=== PATIENT | male | born 2000 | race Caucasian/White ===

== ENCOUNTER 2023-11-16 09:34 | Emergency (ER) | payer OTHER, SELFPAY ==
[2023-11-16 09:37] VITALS: BP 146/87; PULSE 102; RESP 16; TEMP 36.6; O2SAT 95; BMI 23.7
--- NOTE | 2023-11-16 09:41 | XR_ITS ---
Patient: AKHIL NIÑO Facility:?[facility] Patient ID:?[id number] Site Patient ID:?[id number] Site :?[id number] Study:?XRay-Extremity Right FOOT 3V-11/16/2023 9:53:54 AM Ordering Physician:MIROSLAVA Final Report: Indication: Injury and pain Technique: Right foot 3 views. Comparison: None Findings: Bones: Alignment is normal. No fractures or bone lesions. Joint spaces: Unremarkable. Soft tissues: Unremarkable. Impression: No sign of acute injury. Dictated by Ye Moore MD @ 11/16/2023 5:33:11 PM Signed by:?Ye Moore MD @11/16/2023 5:33:11 PM (Electronic Signature)
--- NOTE | 2023-11-16 09:51 | ED_ITS ---
HPI - Extremity Injury (Lower) General Chief Complaint: Extremity Pain/Injury, Lower Stated Complaint: R foot trauma-kicked a cinder block Time Seen by Provider: 11/16/23 09:36 History of Present Illness HPI Narrative: This 23-year-old male comes in with an injury to his right foot. Last evening he was frustrated over various circumstances an out of some anger he kicked a cinder block and comes in today with pain in his right foot. He does not report any other injury. He is otherwise in good health. Related Data Previous Rx's Medication Instructions Recorded ketorolac 10 mg tablet 10 mg PO Q8H 5 days #15 tabs 11/16/23 Allergies Allergy/AdvReac Type Severity Reaction Status Date / Time No Known Drug Allergies Allergy Verified 11/16/23 09:41 Review of Systems Status of ROS: Reports: 10 or more systems reviewed and unremarkable except as noted in History and below Narrative: Constitutional: No fevers, no weight gain or loss. Eyes: No discharge. No vision changes. HENT: No congestion, no sore throat, no ear pain. Cardiovascular: No chest pain, no palpitations. Respiratory: No shortness of breath, no wheezes, no cough. Gastrointestinal: No abdominal pain, no vomiting, no diarrhea. Genitourinary: No dysuria, no hematuria. Musculoskeletal: Normal range of motion. Pain in the right foot. Skin: No rashes, no pruritis. Neurological: No dizziness, weakness, sensory change, speech change. Endo/Heme/Allergies: No bruising or bleeding. No polydipsia. Pysch: no suicidality, no anxiety, no insomnia. All other systems reviewed and are negative. [facility] Social History Smoking Status: Current every day smoker What tobacco products do you use: cigarettes Do you use any of these nicotine containing products: Vaping Products How often do you have a drink containing alcohol: 4 or more times a week How many standard drinks containing alcohol do you have on a typical day: 1 or 2 AUDIT-C Alcohol total score: 4 Non-prescribed substance use: denies use and former substance user Exam Narrative: Exam Narrative: Constitutional: Well-developed, well-nourished, no acute distress. HEENT: Normocephalic, atraumatic. Neck: Normal range of motion. Nontender. Supple. Heart: Regular. No murmurs. Normal rate. Intact distal pulses. Lungs: Clear to auscultation. No chest discomfort. No wheezes, rhonchi, or rales. Abdomen: Normal bowel sounds. Nontender. No rebound tenderness. Genitalia: Deferred. Back: No midline tenderness. Normal range of motion. Extremities: Normal range of motion. Patient reports pain in his right foot. There is no sign of skin injury, swelling, or dysfunction with regard to range of motion. Skin: Intact. No rash. Warm. No erythema or pallor. Neurologic: No altered sensation. No weakness. Alert and oriented. Psychiatric: No suicidality. No anxiety or depression. No insomnia. Nursing notes and vitals signs are reviewed. Const: Vital Signs, click to edit/add: Vital Signs - 24 hr 11/16/23 09:37 Temperature 97.8 F Pulse Rate [Pulse Oximeter] 102 H Respiratory Rate 16 Blood Pressure [Ri ght Upper Arm] 146/87 H Pulse Oximetry 95 Oxygen Delivery Me thod Room Air Course Vital Signs Vital signs: Initial Vital Signs Temperature 97.8 F 11/16/23 09:37 Temperature Source Temporal Artery Scan 11/16/23 09:37 Pulse Rate 102 H 11/16/23 09:37 Respiratory Rate 16 11/16/23 09:37 Blood Pressure 146/87 H 11/16/23 09:37 Blood Pressure Mean 106 H 11/16/23 09:37 Blood Pressure Position Sitting 11/16/23 09:37 Pulse Oximetry 95 11/16/23 09:37 Oxygen Delivery Method Room Air 11/16/23 09:37 Vital Signs Temperature 97.8 F 11/16/23 09:37 Pulse Rate 102 H 11/16/23 09:37 Respiratory Rate 16 11/16/23 09:37 Blood Pressure 146/87 H 11/16/23 09:37 Pulse Oximetry 95 11/16/23 09:37 Oxygen Delivery Method Room Air 11/16/23 09:37 Temperature 97.8 F 11/16/23 09:37 Pulse Rate 102 H 11/16/23 09:37 Respiratory Rate 16 11/16/23 09:37 Blood Pressure 146/87 H 11/16/23 09:37 Pulse Oximetry 95 11/16/23 09:37 Oxygen Delivery Method Room Air 11/16/23 09:37 MDM - Extremity Injury (Lower) MDM Narrative Medical decision making narrative: This 23-year-old male comes in with a self-induced injury to his right foot that occurred last evening when he kicked something hard out of frustration. X-ray imaging of the right foot is obtained and by my review shows no sign of acute injury. Radiology report is pending. The patient's exam is also reassuring. There is no sign of swelling or deformity. The only finding is his personal report of pain. His range of motion is intact. He states that he does have significant enough pain when ambulating that he would benefit with use of crutches. These are ordered and fitted for him. He did also receive a prescription for Toradol. I advised him to increase activity as tolerated or follow-up with orthopedic clinic if not improving. Discharge Plan Discharge Clinical Impression: Injury of foot, right Patient Disposition: Home, Self-Care Additional Instructions: Use crutches as needed. Increase activity as tolerated. Take medication also as needed and directed. Follow up with MD or orthopedic clinic if not improving. Return if worsening. Prescriptions: New ketorolac 10 mg tablet 10 mg PO Q8H 5 Days Qty: 15 0RF Follow Up/Referrals: Provider,Not a Local [Primary Care Provider] - Stand Alone Forms: [employer] Info Instructions
== END 2023-11-16 10:43 | disposition home or self-care (01) ==
PROVIDERS: Emergency Provider Emergency Medicine Emergency Medical Services
DX: S90.31XA Contusion of right foot, initial encounter (principal); W22.09XA Striking against other stationary object, initial encounter
CPT/HCPCS: 73630; 99283; 99284